=== PATIENT | male | born 1950 | race Caucasian/White ===

== ENCOUNTER 2019-01-03 09:42 | Outpatient (CLI) | payer OTHER ==
[~2019-01-03] VITALS: Ht 162.6 cm; Wt 76.7 kg
[2019-01-03 10:01] VITALS: BP 149/79
[2019-01-03] MEDS ORDERED: UNOBMED (11:48)
[2019-01-05] MEDS ORDERED: METOPROLOL SUCC25 MG ORAL (12:14)
[2019-01-05] MEDS ORDERED: BICALUTAMIDE50 MG ORAL (12:14)
[2019-01-05] MEDS ORDERED: LOSARTAN POTASS50 MG ORAL (12:14)
[2019-01-05] MEDS ORDERED: TAMSULOSIN HCL0.4 MG ORAL (12:14)
[2019-01-05] MEDS ORDERED: METFORMIN HCL500 M1 ORAL (12:14)
[2019-01-05] MEDS ORDERED: ATORVASTATIN CA20 MG ORAL (12:14)
--- NOTE | 2019-01-05 15:22 | GI Initial Consult Note ---
History of Present Illness General Date patient seen: Jan 03, 2019 Time patient seen: 15:19 Referring physician: O Reason for Consultation: Colonoscopy screening Present Illness HPI This is a 68-year-old male patient presents today for routine colonoscopy screening. The patient denies any current GI symptoms; denies any abdominal pain, denies any nausea vomiting, denies any constipation or diarrhea. Patient states he had a colonoscopy back in 2016 at [place] in which they recommended a repeat colonoscopy 3 years later. Denies any unintentional weight loss or changes in dietary habits. No signs of abuse or neglect. Patient is not fall risk. The patient cannot recall any current medication at this time. Home Meds Reported Medications Bicalutamide* (BICALUTAMIDE*) 50 Mg Tablet, 50 MG ORAL DAILY, TAB 01/05/19 Losartan Potassium* (LOSARTAN POTASSIUM*) 50 Mg Tablet, 50 MG ORAL DAILY, TAB 01/05/19 Tamsulosin Hcl (TAMSULOSIN HCL*) 0.4 Mg Cap.er.24h, 0.4 MG ORAL BEDTIME, CAP 01/05/19 Metoprolol Succinate* (METOPROLOL SUCCINATE*) 25 Mg Tab.er.24h, 25 MG ORAL DAILY , TAB 01/05/19 Metoprolol Succinate* (METOPROLOL SUCCINATE*) 25 Mg Tab.er.24h, 25 MG ORAL DAILY , TAB 01/05/19 Atorvastatin Calcium* (ATORVASTATIN CALCIUM*) 20 Mg Tablet, 20 MG ORAL BEDTIME, TAB 01/05/19 Metformin Hcl* (METFORMIN HCL*) 500 Mg Tablet, 500 MG ORAL TWICE A DAY, TAB 01/05/19 Med list reviewed/reconciled: Yes Allergies: Coded Allergies: VANCOMYCIN (Verified Allergy, Intermediate, 01/05/19) papitation, anxiety HYDROCHLOROTHIAZIDE (Verified Allergy, Unknown, 01/05/19) PENICILLINS (Verified Allergy, Unknown, Itching, 01/05/19) Patient History PMH Narrative Prostate cancer status post radiation Hypertension Diabetes mellitus Past surgical history Anal pager approximately 25 years ago Pertinent Family History: none Social History: Reports: alcohol use - Occasional use, other - tea Review of Systems All Other Systems: negative except mentioned in HPI Physical Exam Vital Signs Date Time Temp Pulse Resp B/P (MAP) Pulse Ox O2 Delivery O2 Flow Rate FiO2 01/03/19 10:01 97.7 58 16 149/79 97 Sp02 EP Interpretation: reviewed, normal General Appearance: well appearing, no apparent distress, alert Head: normocephalic EENT: PERRL/EOMI, normal ENT inspection Neck: supple Respiratory: normal breath sounds, no respiratory distress Cardiovascular: normal rate Gastrointestinal: normal inspection, non tender, soft, normal bowel sounds, non -distended Rectal: deferred Genitourinary: deferred Musculoskeletal: normal inspection, back normal Neurologic: normal inspection, alert, oriented x3, responsive Psychiatric: normal inspection, judgement/insight normal, memory normal Skin: normal inspection, normal color, no rash, warm/dry, palpation normal, well hydrated Lymphatic: normal inspection, no adenopathy GI: Plan Problems: (1) Colonoscopy planned (2) Prostate cancer (3) Hypertension (4) Diabetes mellitus Plan EGD/colonoscopy to be scheduled pending PA, will contact patient. - CLD & (Nulytely/Suprep/Movi-Prep) prep instructions given and acknowledged by patient. - NPO @ [place] day prior procedure explained. Will follow with additional recs post procedure. Seen with Dr. Del Cid. Thank you for this patient referral. The patient was seen and examined at bedside and all new and available data was reviewed in the patients chart. I agree with the above findings, impression and plan. (Patient seen earlier today. Signature stamp does not reflect patient encounter time.). - MD Nikki Arreola,[facility] Jan 05, 2019 15:22
== END 2019-01-03 10:12 | disposition home or self-care (01) ==
LOC: PAN 09:42
DX: Z12.11 Encounter for screening for malignant neoplasm of colon (principal); C61 Malignant neoplasm of prostate; I10 Essential (primary) hypertension; E11.9 Type 2 diabetes mellitus without complications; Z88.1 Allergy status to other antibiotic agents; Z88.0 Allergy status to penicillin
CPT/HCPCS: 99202

== ENCOUNTER 2019-02-22 08:26 | Day surgery (SDC) | payer OTHER ==
[2019-02-22] VITALS (9 sets, daily range): BP systolic 123–152; BP diastolic 67–80
[~2019-02-22] VITALS: Ht 162.6 cm; Wt 73.5 kg
[~2019-02-22 08:26] MED LIST: ATORVASTATIN CA20 MG ORAL; BICALUTAMIDE50 MG ORAL; LOSARTAN POTASS50 MG ORAL; METFORMIN HCL500 M1 ORAL; METOPROLOL SUCC25 MG ORAL; TAMSULOSIN HCL0.4 MG ORAL; UNOBMED
--- NOTE | 2019-02-22 09:29 | Pre-Procedure Note/Attestation ---
Pre-Procedure Note/Attestation Complete Prior to Procedure Planned Procedure: not applicable Procedure Narrative: screening colonoscopy Indications for Procedure Pre-Operative Diagnosis: screening Attestation I attest that I discussed the nature of the procedure; its benefits; risks and complications; and alternatives (and the risks and benefits of such alternatives ), prior to the procedure, with the patient (or the patient's legal outside energy sales representatives). I attest that, if there was a reasonable possibility of needing a blood transfusion, the patient (or the patient's legal outside energy sales representatives) was given the [facility] standardized written summary, pursuant to the [place] Blood Safety Act ([place] Health and Safety Code # 1645, as amended). I attest that I re-evaluated the patient just prior to the surgery and that there has been no change in the patient's H&P, except as documented below: Lyle Del Cid MD Feb 22, 2019 09:29
--- NOTE | 2019-02-22 09:30 | Short Stay Surgery H&P ---
History of Present Illness History of Present Illness Chief Complaint please see recent office note HPI Gianni Segura is a 69 year old male who was admitted on for Colon Screening Patient History Allergies: Coded Allergies: VANCOMYCIN (Verified Allergy, Intermediate, 01/05/19) papitation, anxiety PENICILLINS (Verified Allergy, Unknown, Itching, 01/05/19) Medication History Scheduled Atorvastatin Calcium* (Atorvastatin Calcium*), 20 MG ORAL BEDTIME, (Reported) Bicalutamide* (Bicalutamide*), 50 MG ORAL DAILY, (Reported) Losartan Potassium* (Losartan Potassium*), 50 MG ORAL DAILY, (Reported) Metformin Hcl* (Metformin Hcl*), 500 MG ORAL TWICE A DAY, (Reported) Metoprolol Succinate* (Metoprolol Succinate*), 25 MG ORAL DAILY, (Reported) Tamsulosin Hcl (Tamsulosin Hcl*), 0.4 MG ORAL BEDTIME, (Reported) Physical Exam Vital Signs Last Vital Signs Date Time Temp Pulse Resp B/P (MAP) Pulse Ox O2 Delivery O2 Flow Rate FiO2 02/22/19 09:12 Room Air 02/22/19 09:10 97.6 68 20 152/74 100 Plan Attestation Are the patient's medical conditions optimized for surgery? Lyle Del Cid MD Feb 22, 2019 09:30
[2019-02-22] MEDS ORDERED: Midazolam 2mg/2ml Inj ONE (09:46)
--- NOTE | 2019-02-22 09:57 | Anethesia Preoperative Eval ---
Anesthesia Pre-op PMH/ROS General Date of Evaluation: Feb 22, 2019 Time of Evaluation: 09:53 Anesthesiologist: Les ASA Score: ASA 2 Mallampati Score Class I : Soft palate, uvula, fauces, pillars visible Class II: Soft palate, uvula, fauces visible Class III: Soft palate, base of uvula visible Class IV: Only hard plate visible Mallampati Classification: Class I Surgeon: Nehemias Diagnosis: Colon screening Surgical Procedure: Colonoscopy Anesthesia History: none Social History: alcohol use Family History: no anesthesia problems Allergies: Coded Allergies: VANCOMYCIN (Verified Allergy, Intermediate, 01/05/19) papitation, anxiety PENICILLINS (Verified Allergy, Unknown, Itching, 01/05/19) Medications: see eMAR Patient NPO?: Yes NPO Date: Feb 21, 2019 NPO Time: 23:00 Past Medical History Cardiovascular: Reports: HTN, other - hypercholosterol Pulmonary: Denies: asthma, COPD, KETAN, other Gastrointestinal/Genitourinary: Denies: GERD, CRI, ESRD, other Neurologic/Psychiatric: Denies: dementia, CVA, depression/anxiety, TIA, other Endocrine: Reports: DM HEENT: Reports: cataract (L), cataract (R) Hematology/Immune: Reports: other - prostate CA -tx with radiation Musculoskeletal/Integumentary: Reports: OA - both hands, DDD Anesthesia Pre-op Phys. Exam Physician Exam Last Vital Signs Date Time Temp Pulse Resp B/P (MAP) Pulse Ox O2 Delivery O2 Flow Rate FiO2 02/22/19 09:12 Room Air 02/22/19 09:10 97.6 68 20 152/74 100 Constitutional: NAD Neurologic: CN 2-12 intact Cardiovascular: RRR Respiratory: CTA Gastrointestinal: S/NT/ND Airway Exam Mallampati Score: Class I MO: full ROM: full Teeth: intact Dentures: no upper, no lower Anesthesia Pre-op A/P Studies Pre-op Studies: EKG - NSR 61 bpm Risk Assessment & Plan Assessment: A&Ox4 Plan: MAC Status Change Before Surgery: No Pre-Antibiotics Given Within 1 Hr of Incision: No Gloria Saldana CRNA Feb 22, 2019 09:57
[2019-02-22] MEDS ORDERED: Propofol 200mg/20ml IV ONE (10:00)
[2019-02-22] MEDS ORDERED: Lidocaine 1% MPF 10mg/ml 5ml ONE (10:00)
--- NOTE | 2019-02-22 10:11 | Immediate Post-Op Evaluation ---
Immediate Post-Op Evalulation Immediate Post-Op Evalulation Procedure: Colonoscopy Date of Evaluation: Feb 22, 2019 Time of Evaluation: 10:30 IV Fluids: NSS 400ml Blood Products: 0 Estimated Blood Loss: 0 Urinary Output: 0 Blood Pressure Systolic: 123 Blood Pressure Diastolic: 70 Pulse Rate: 67 Respiratory Rate: 20 O2 Sat by Pulse Oximetry: 100 Temperature (Fahrenheit): 97.9 Pain Score (1-10): 0 Nausea: No Vomiting: No Complications none Patient Status: awake, reacts, patent Hydration Status: adequate Given Within 1 Hr of Incision: No - none per surgeon Gloria Saldana CRNA Feb 22, 2019 10:11
--- NOTE | 2019-02-22 10:11 | 48 Hour Post Anesthesia Eval ---
Post Anesthesia Evaluation Procedure: Colonoscopy Date of Evaluation: Feb 22, 2019 Time of Evaluation: 11:21 Blood Pressure Systolic: 124 0: 76 Pulse Rate: 60 Respiratory Rate: 16 Temperature (Fahrenheit): 98 O2 Sat by Pulse Oximetry: 97 Airway: patent Nausea: No Vomiting: No Hydration Status: adequate Mental Status/LOC: patient returned to baseline Follow-up care needed: patient intructions given Gloria Saldana CRNA Feb 22, 2019 10:11
[2019-02-22] MEDS ORDERED: fentaNYL 100 mcg/2 mL IV PRN (10:15)
--- NOTE | 2019-02-22 10:30 | Endoscopy Procedure Note ---
Endoscopy Procedure Note General Indication for Procedure: screening Procedures Performed: colonoscopy Operative Findings/Diagnosis: colon polyp x2 Specimen: yes Pt Tolerated Procedure Well: Yes Estimated Blood Loss: none Anesthesia Anesthesiologist: apoorva Anesthesia: MAC Inserted Devices Implant(s) used?: No Quality Quality of Bowel Preparation: Good Did scope reach the cecum?: Yes Was there any complications?: No GI Core Measures 50 yrs or older w/o bx or poly: No 10yrs. F/U not recommended: Yes If not recommended, why?: Above average risk 10 yrs. F/U needed: Yes 18 years or older w/prev. colo: No Lyle Del Cid MD Feb 22, 2019 10:30
--- NOTE | 2019-02-22 17:30 | Procedure Note ---
DATE OF PROCEDURE: 02/22/2019 SURGEON: Lyle Del Cid M.D. PROCEDURE: Colonoscopy with biopsy. ANESTHESIA: Per Les CAM. INSTRUMENT: Olympus adult flexible colonoscope. INDICATION: Screening. REASON FOR PROCEDURE: The procedure, risks, benefits, and possible consequences, including hemorrhage, aspiration, perforation and infection, and alternative treatments, were explained to the patient/legal guardian by Dr. Lyle Del Cid and the patient/legal guardian understood and accepted these risks. PROCEDURE IN DETAIL: After informed consent was obtained and the patient was adequately sedated, first rectal exam was performed, which shows normal. Then, the scope was advanced from the rectum to cecum and then subsequently to terminal ileum. Quality of prep was good. The patient had two polyps in the transverse colon, both measured about 4 to 5 mm, removed with the cold biopsy forceps technique. The rest of the examination was within normal limit. Retroflexion of the rectum showed evidence of medium-sized nonbleeding internal hemorrhoids. The patient tolerated the procedure very well without complication. SUMMARY OF FINDINGS: 1. Two colonic polyp. See above for details. 2. Internal hemorrhoids. RECOMMENDATIONS: 1. Follow up pathology. 2. We recommend repeat colonoscopy in 5 years. Lyle Del Cid M.D. DR: GOPAL JOB#: [id number] CC:
== END 2019-02-22 11:35 | disposition home or self-care (01) ==
LOC: GAS 08:26
DX: Z12.11 Encounter for screening for malignant neoplasm of colon (principal); D12.3 Benign neoplasm of transverse colon; K63.5 Polyp of colon; K64.8 Other hemorrhoids; Z88.0 Allergy status to penicillin; I10 Essential (primary) hypertension; E78.00 Pure hypercholesterolemia, unspecified; E11.9 Type 2 diabetes mellitus without complications; M19.042 Primary osteoarthritis, left hand; M19.041 Primary osteoarthritis, right hand
CPT/HCPCS: 45380; 82962; 93005; J2250; J2704; 94003; 94150

== ENCOUNTER 2019-04-25 09:52 | Outpatient (CLI) | payer OTHER ==
--- NOTE | 2019-04-25 10:24 | General Progress Note ---
Assessment/Plan Problem List: (1) Colon polyps ICD Codes: K63.5 - Polyp of colon SNOMED: 95445367 (2) Hypertension ICD Codes: I10 - Essential (primary) hypertension SNOMED: 92201431 (3) Prostate cancer ICD Codes: C61 - Malignant neoplasm of prostate SNOMED: 663480011 (4) Diabetes mellitus ICD Codes: E11.9 - Type 2 diabetes mellitus without complications SNOMED: 21793013 Assessment/Plan: repeat colonoscopy in 5 years Subjective ROS Limited/Unobtainable: Yes Allergies: Coded Allergies: VANCOMYCIN (Verified Allergy, Intermediate, 01/05/19) papitation, anxiety PENICILLINS (Verified Allergy, Unknown, Itching, 01/05/19) Objective General Appearance: alert EENT: normal ENT inspection Neck: supple Cardiovascular: normal rate Respiratory/Chest: lungs clear Abdomen: normal bowel sounds Extremities: non-tender Lyle Del Cid MD April 25, 2019 10:24
[2019-04-25 16:11] VITALS: BP 101/59
== END 2019-04-25 13:00 | disposition home or self-care (01) ==
LOC: PAN 09:52
DX: K63.5 Polyp of colon (principal); I10 Essential (primary) hypertension; C61 Malignant neoplasm of prostate; E11.9 Type 2 diabetes mellitus without complications; Z88.0 Allergy status to penicillin; Z88.8 Allergy status to other drugs, medicaments and biological substances